=== PATIENT | female | born 2000 | race Caucasian/White ===

== ENCOUNTER 2024-01-09 14:05 | Inpatient (IN) | payer OTHER, SELFPAY ==
[2024-01-09] VITALS (37 sets, daily range): BP systolic 110–182; BP diastolic 56–108; PULSE 60–90; RESP 16–20; TEMP 36.2–37.3; O2SAT 89–100; BMI 29.0
[2024-01-09] MEDS: Lactated Ringers 1,000 ML 50 ML IV (14:50)
[2024-01-09 15:10] LABS: Absolute Lymphocyte Count 1.48 X10^3/uL (0.83-4.51); Absolute Neutrophil Count 7.7 X10^3/uL (2.0-7.7); Basophil# 0.03 X10^3/uL; Basophil% 0.3 % (0-1); Eosinophil# 0.11 X10^3/uL; Eosinophils% 1.1 % (0-5); Hematocrit 35.7 % (37-47); Hemoglobin 11.7 g/dL (12.0-15.0); Lymphocyte # 1.48 X10^3/ul (0.83-4.51); Lymphocyte % 14.5 % (19-41); Mean Corp Hgb Conc 32.8 g/dL (32-36); Mean Corpuscular Hgb 29.5 pg (27.0-32.0); Mean Corpuscular Volume 90.2 fL (81-99); Mean Platelet Vol. 11.7 fl (6.2-12.0); Monocyte# 0.83 X10^3/uL; Monocyte% 8.1 % (0-10); NRBC Flagged by Analyzer 0 % (0-5); Neutrophil % 75.4 % (47-70); Platelet Count 118 K/mm3 (150-450); RBC Distribution Width SD 46.1 fl (35.1-43.9); Red Blood Count 3.96 M/mm3 (4.2-5.4); White Blood Count 10.2 K/mm3 (4.4-11.0)
[2024-01-09 15:46] LABS: Syphilis Antibodies Non-reactive
[2024-01-09 17:32] LABS: AST(SGOT) 23 U/L (15-37); Alanine Aminotransfer ALT/SGPT 14 U/L (13-56); Creatinine, Serum 0.69 mg/dL (0.55-1.02); EST Glomerular Filtration Rate 111 mL/min (>60); Est Glom Filt Rate - Afr Amer 134 mL/min (>60); Estimated Creatinine Clearance 130.67 ml/min; Uric Acid 4.6 mg/dL (2.6-6.0)
[2024-01-09 17:33] LABS: Protein, Urine (Random) 25.9 mg/dL (<11.9); Protein:Creat Ratio 281 mg/g CRE (0-200)
--- NOTE | 2024-01-09 17:43 | PCM.HP.OB ---
HPI - General General Date of Admission: 01/09/24 HPI Narrative VICTORIA NORWOOD, is a 23 F at who presents from office for leaking of fluid. Fern and Nitrazine positive. Maternal Data Information FRANCISCO Calculator Estimated Delivery Date Method Current WG Current Estimate 01/11/24 Manual 39w 5d PFSH PFSH Medical History (Updated 01/09/24 @ 19:45 by Dunia Rivas CNM) Anxiety Asthma Home Medications albuterol sulfate 90 mcg/actuation aerosol inhaler 2 puff inhalation Q4H PRN PRN dyspnea 01/09/24 [History Last Taken Unknown] docosahexaenoic acid See Rx Instructions PO DAILY 01/09/24 [History Last Taken 01/08/24] Allergy/AdvReac Type Severity Reaction Status Date / Time Latex, Natural Rubber Allergy Mild Hives Verified 01/09/24 14:26 gluten Allergy Nausea/Vom/ Verified 01/09/24 14:26 Diarrhea Surgical History (Updated 01/09/24 @ 15:22 by Radha Gracia) History of surgery Social History Smoking Status: Never smoker History Elective abortions Hx Para 0 Spontaneous abortions Hx # Term Pregnancies Ectopic pregnancies Hx # Pregnancies Multiple births # of living children ROS Eyes Eyes: Denies blurry vision, change in vision or spots in vision ENT HEENT: Denies dizziness or headache(s) Cardiovascular Cardiovascular: Denies abdominal pain, chest pain or dyspnea Respiratory/Chest Respiratory/Chest: Denies cough, dyspnea, shortness of breath at rest or shortness of breath with exertion Gastrointestinal Gastrointestinal: Denies abdominal pain, diarrhea or vomiting Genitourinary Genitourinary: Denies change in urinary stream, difficulty urinating or dysuria Musculoskeletal Musculoskeletal: Reports none Integumentary Integumentary: Denies rash Neurologic Neurologic: Denies dizziness, headache(s), memory loss or weakness Psychiatric Psychiatric: Reports none Vital Signs Vital Signs Vital Signs: 01/09/24 14:30 01/09/24 14:30 01/09/24 14:32 Temperature Temperature Source Pulse Rate 81 Respiratory Rate Blood Pressure 182/96 H 179/77 H BP Systolic 182 179 BP Diastolic 96 77 01/09/24 14:32 01/09/24 14:54 01/09/24 14:54 Temperature Temperature Source Pulse Rate 77 78 Respiratory Rate Blood Pressure 140/84 H BP Systolic 140 BP Diastolic 84 01/09/24 15:34 01/09/24 15:34 01/09/24 15:34 Temperature 98.6 F Temperature Source Temporal Pulse Rate Respiratory Rate 16 Blood Pressure BP Systolic BP Diastolic 01/09/24 16:11 01/09/24 16:11 01/09/24 16:10 Temperature Temperature Source Temporal Pulse Rate 77 Respiratory Rate Blood Pressure 152/90 H BP Systolic 152 BP Diastolic 90 01/09/24 16:10 01/09/24 16:10 01/09/24 16:29 Temperature 97.8 F Temperature Source Pulse Rate Respiratory Rate 16 Blood Pressure 148/75 H BP Systolic 148 BP Diastolic 75 01/09/24 16:29 01/09/24 17:36 01/09/24 17:36 Temperature Temperature Source Pulse Rate 73 83 Respiratory Rate Blood Pressure 134/79 H BP Systolic 134 BP Diastolic 79 01/09/24 17:35 01/09/24 17:35 01/09/24 17:35 Temperature 99.1 F Temperature Source Temporal Pulse Rate Respiratory Rate 16 Blood Pressure BP Systolic BP Diastolic Weight Weight: 174 lb 6.17 oz Body Mass Index (BMI) 29.0 Physical Exam Const alert, oriented x3 and no apparent distress General Appearance: cooperative Orientation / Consciousness: awake Exam Limitations: no limitations HEENT normocephalic Head and Scalp: normal to inspection Eyes General Eye: normal appearance of both eyes Neck full ROM and no lymphadenopathy Lymph Lymphatic: no lymphadenopathy noted Chest inspection of chest normal Resp normal respiratory effort, normal air movement and clear to auscultation bilaterally Effort and Inspection: able to speak in complete sentences and symmetric chest movement Cardio regular rate and regular rhythm GI normal to inspection, nondistended, normoactive bowel sounds Manual OB Exam: presentation cephalic, dilated 4, effaced 80 and station 0 Amniotic Fluid: clear amniotic fluid Back/Spine normal ROM Extremity full ROM and no calf tenderness Skin no rashes or lesions noted General Skin Exam: no breakdown Neuro oriented x3 and CN's II-XII intact bilaterally Psych mental status grossly normal and thought process normal Labs Labs Labs: Blood Type O NEGATIVE Antibody Screen NEGATIVE Hct 35.7 % (37-47) L Hgb 11.7 g/dL (12.0-15.0) L Syphilis Total Ab Non-reactive GBS negative Assessment & Plan (1) Spontaneous rupture of amniotic membranes: (2) Anxiety: (3) Asthma: COMMENT: inhaler (4) Rh negative status during : PLAN: Plan Admit to labor and delivery Routine labs CE /-2 IUPC placed without difficulty. Large amount of clear fluid noted Start Pitocin at 2 mu/min and increase per orders Epidural when indicated Dr. Otero notified of admission and is collaborating physician
[2024-01-09] MEDS: LACTATED RINGERS 500 ML 999 ML IV (19:44)
[2024-01-09] MEDS: Oxytocin 15 Units/NS 250ml 15 UNITS/250 ML IV.SOLN 2 UNITS IV (19:50)
[2024-01-10] VITALS (23 sets, daily range): BP systolic 118–150; BP diastolic 63–91; PULSE 71–136; RESP 16–20; TEMP 36.2–37.8; O2SAT 16–100
[2024-01-10] MEDS: Lactated Ringers 1,000 ML 200 ML IV (00:12)
[2024-01-10] MEDS: Mag Hydrox/Al Hydrox/Simeth 30 ML UDC PO (00:12)
[2024-01-10] MEDS: Ondansetron 4 MG/2 ML Vial IV (00:38)
[2024-01-10] MEDS: 0.9% Saline Lock 10 ML Syringe IV ×3 (00:39→19:52)
[2024-01-10] MEDS: fentaNYL-bupivacaine (epidural) 100 ML BAG EPIDURAL (01:35)
--- NOTE | 2024-01-10 05:35 | PCM.PN.CNM ---
Subjective Subjective Patient seen at bedside. Complete dilation and pushing for over 3 hours with minimal progress. Called to room for assessment. Patient is tearful and stating she cannot push and further. C/O right hip and RUQ pain. Anesthesia called for assessment. Objective Data Objective Data Vital Signs: Vital Signs Temp Pulse Resp BP Pulse Ox O2 Del Method 97.5 F L 113 H 20 H 140/80 H 99 Room Air 01/10/24 05:31 01/10/24 05:32 01/10/24 05:31 01/10/24 05:32 01/10/24 05:31 01/10/24 05:31 Oxygen Delivery Method Room Air Weight: 174 lb 6.17 oz Body Mass Index (BMI) 29.0 Intake & Output: Intake and Output for Last 24 Hours 01/08/24 01/09/24 01/10/24 23:59 23:59 23:59 Intake Total 1500.00 / 1500.00 18.8 / 18.8 Output Total 1550 / 1550 Balance 1500.00 / 1500.00 -1531.2 / -1531.2 Lab / Micro Data 01/09/24 14:50 01/09/24 17:00 Labs: Laboratory Results - last 24 hr 01/09/24 14:50: WBC 10.2, RBC 3.96 L, Hgb 11.7 L, Hct 35.7 L, MCV 90.2, MCH 29.5, MCHC 32.8, RDW Std Deviation 46.1 H, RDW Coeff of Joe 14.0, Plt Count 118 L, MPV 11.7, Immature Gran % (Auto) 0.600, Neut % (Auto) 75.4 H, Lymph % (Auto) 14.5 L, Calloway % (Auto) 8.1, Eos % (Auto) 1.1, Baso % (Auto) 0.3, Absolute Neuts (auto) 7.7, Absolute Lymphs (auto) 1.48, Nucleated RBC % 0, Syphilis Total Ab Non-reactive, Blood Type O NEGATIVE, Antibody Screen NEGATIVE 01/09/24 17:00: Creatinine 0.69, Estim Creat Clear Calc 130.67, Est GFR (MDRD) Af Amer 134, Est GFR (MDRD) Non-Af 111, Uric Acid 4.6, AST 23, ALT 14, U Random Total Protein 25.9 H, Urine Creatinine 92.30, Protein/Creatinin Ratio 281 H Assessment & Plan (1) Failure of descent in labor, delivered, current hospitalization: (2) Asthma: COMMENT: inhaler (3) Anxiety: (4) Rh negative status during : PLAN: Plan CE station- caput noted Attempted to push at bedside with patient to assess - patient pushing with no movement of head Pitocin currently off for tachysystole Discussed options at this time and patient would like a primary section Dr. Otero aware of plan and is in route to hospital
[2024-01-10] MEDS: Sodium Citrate/Citric Acid 30 ML UDC PO (05:37)
[2024-01-10] MEDS: Acetaminophen 500 MG Tablet PO (05:40)
[2024-01-10] MEDS: Cefazolin 2 GM in 0.9% Normal Saline (100mL Bag) 100 ML IV (06:00)
[2024-01-10] MEDS: Azithromycin 500 MG in Dextrose 5%-Water (250mL Bag) 250 ML 250 MG IV (06:01)
--- NOTE | 2024-01-10 06:35 | OP.PCM_ITS ---
Maternal Data Information FRANCISCO Calculator Estimated Delivery Date Method Current WG Current Estimate 01/11/24 Manual 39w 6d Details Operative Information Date of Procedure: 01/10/24 Pre-Operative Diagnosis: Arrest of descent Post-Operative Diagnosis: same, live male Indications for : Arrrest of Descent Indications Narrative: I was called by CNLavinia Rivas notified that patient had been pushing for 3 hours without any descent of the head caput not past the 0 station. Decision for primary for arrest of descent. 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 She was prepped and draped in the normal sterile fashion. Epidural Anesthesia was found to be adequate. At this time a Pfannenstiel skin incision was made with a knife was carried down to the underlying layer of the fascia. The fascial incision was then extended laterally using opposing traction. Attention was then turned to the superior aspect of the fascial edge was grasped with 2 straight [place] clamps tented up and the rectus muscle dissected off sharply using curved Alicea scissor. Rectus muscles were then in the midline bluntly and peritoneum was entered bluntly. Gentle opposing traction was placed. At this time the vesicouterine peritoneum was identified. Scalpel was used to make a uterine incision in a low transverse fashion. The uterus was then entered bluntly gentle opposing traction was placed to extend this incision. pt will large amount of amniotic fluid still present, clear. with minimal push up from below to help disengage head- Infant's head was brought to the uterine incision was delivered atraumatically. Cord was clamped and cut was handed to the waiting nursery team. The Placenta was removed from the uterus. The uterus was then removed from the abdominal cavity. The uterus was cleared of all clots and debris using a lap. At this time the uterine incision was reapproximated using #1 Vicryl in a running locked fashion. There was an extension down the left side, multiple sutures used for hemostasis- once hemostasis acheive hemoblast used and pressure held x 2 min- excellent hemostasis noted. Posterior cul-de-sac was then cleared of all clots and debris. Uterus was placed back in the abdominal cavity. Gutters were cleared of all clots and debris. Uterine incision was reevaluated and noted to be of excellent hemostasis. hemoblast placed on uterine incision. At this time the peritoneum was grasped with Kellys reapproximated using #2 Vicryl suture in a running fashion. Fascia was then reapproximated using #1 Vicryl in a running fashion. Subcu layer was irrigated , bovied for any oozing and remaining hemoblast placed, it was then reapproximated with #2 0 plain gut suture in an interrupted fashion. Subcu layer was closed using 4-0 Monocryl in a subcu fashion. Dry sterile dressing was applied. Instrument lap needle count correct ?2. Anticipated normal postoperative course. Presentation: Positive for Vertex Amniotic Membrane Rupture Type: Spontaneous Amniotic Fluid Description: Clear Placental Delivery Description: Manual Removal Placenta Disposition: [facility] Cord Vessel Description: 3 Vessels Cord Entanglement: None Cord Gases: ABG and VBG Infant A Gender: Male (1 minute): 8 (5 minute): 9 Delayed Cord Clamping: No Complications Risks of Surgery Discussed w/Patient: Bleeding, Anesthesia Risks, Infection, Need for Future C-Sections and Injury to surrounding structure(s) including bowel and bladder Complications: none
[2024-01-10] MEDS: Lactated Ringers 1,000 ML 100 ML IV (07:15)
[2024-01-10] MEDS: Oxytocin 15 Units/NS 250ml 15 UNITS/250 ML IV.SOLN 83 UNITS IV (07:19)
[2024-01-10] MEDS: Ketorolac 30 MG/ML Syringe IV ×3 (07:57→19:52)
[2024-01-10] MEDS: Acetaminophen 500 MG Tablet 1000 MG PO ×3 (11:17→23:48)
[2024-01-11] MEDS: Ketorolac 30 MG/ML Syringe IV (02:23)
[2024-01-11] MEDS: 0.9% Saline Lock 10 ML Syringe IV (02:23)
[2024-01-11 04:00] VITALS: BP 135/70; PULSE 75; RESP 16; TEMP 36.4; O2SAT 96
[2024-01-11] MEDS: Acetaminophen 500 MG Tablet 1000 MG PO ×3 (05:57→18:31)
[2024-01-11 06:47] LABS: Hematocrit 25.8 % (37-47); Hemoglobin 8.4 g/dL (12.0-15.0); Mean Corp Hgb Conc 32.6 g/dL (32-36); Mean Corpuscular Hgb 29.8 pg (27.0-32.0); Mean Corpuscular Volume 91.5 fL (81-99); Mean Platelet Vol. 11.3 fl (6.2-12.0); Platelet Count 104 K/mm3 (150-450); RBC Distribution Width CV 14.5 % (11.6-14.6); RBC Distribution Width SD 48.2 fl (35.1-43.9); Red Blood Count 2.82 M/mm3 (4.2-5.4); White Blood Count 12.8 K/mm3 (4.4-11.0)
[2024-01-11 08:28] VITALS: BP 125/68; RESP 16; TEMP 36.6; O2SAT 98
[2024-01-11] MEDS: Ibuprofen 600 MG Tablet PO ×3 (08:33→21:02)
--- NOTE | 2024-01-11 10:28 | PCM.PN.OB ---
Subjective Subjective Doing well per patient and nursing staff. Ambulating and taking PO without difficulty. Voiding and passing flatus. Pain controlled. , services for assistance. Denies headache, visual changes, chest pain, shortness of breath, leg pain or increased bleeding. Lochia normal. Objective Data Objective Data Vital Signs: Vital Signs Temp Pulse Resp BP Pulse Ox O2 Del Method 97.9 F 75 16 125/68 H 98 Room Air 01/11/24 08:28 01/11/24 04:00 01/11/24 08:28 01/11/24 08:28 01/11/24 08:28 01/11/24 08:28 Oxygen Delivery Method Room Air Weight: 174 lb 6.17 oz Body Mass Index (BMI) 29.0 Intake & Output: Intake and Output for Last 24 Hours 01/09/24 01/10/24 01/11/24 23:59 23:59 23:59 Intake Total 1500.00 / 1500.00 2404.8 / 2404.8 Output Total 2800 / 2800 900 / 900 Balance 1500.00 / 1500.00 -395.2 / -395.2 -900 / -900 Lab / Micro Data 01/11/24 06:02 01/09/24 17:00 Labs: Laboratory Results - last 24 hr 01/11/24 06:02: WBC 12.8 H, RBC 2.82 L, Hgb 8.4 L, Hct 25.8 L, MCV 91.5, MCH 29.8, MCHC 32.6, RDW Std Deviation 48.2 H, RDW Coeff of Jeo 14.5, Plt Count 104 L, MPV 11.3 ROS Constitutional Constitutional: Reports systems reviewed and no addt'l complaints, except as documented; Denies headache(s) Eyes Eyes: Denies acute decrease in peripheral vision, blurry vision or change in vision ENT HEENT: Reports systems reviewed and no addt'l complaints, except as documented Cardiovascular Cardiovascular: Denies chest pain or dizziness Respiratory/Chest Respiratory/Chest: Denies cough, dyspnea, dyspnea on exertion, shortness of breath at rest or shortness of breath with exertion Gastrointestinal Gastrointestinal: Denies abdominal pain, diarrhea, nausea or vomiting Genitourinary Genitourinary: Denies abdominal discomfort Musculoskeletal Musculoskeletal: Denies limited range of motion Integumentary Integumentary: Reports systems reviewed and no addt'l complaints, except as documented Neurologic Neurologic: Reports systems reviewed and no addt'l complaints, except as documented Psychiatric Psychiatric: Reports systems reviewed and no addt'l complaints, except as documented Endocrine Endocrinology: Reports systems reviewed and no addt'l complaints, except as documented Hematologic/Lymphatic Hematologic/Lymphatic: Reports systems reviewed and no addt'l complaints, except as documented Allergic/Immunologic Allergic/Immunologic: Reports systems reviewed and no addt'l complaints, except as documented Physical Exam Const alert and oriented x3 General Appearance: cooperative Orientation / Consciousness: awake, oriented to person, oriented to place and oriented to time Exam Limitations: no limitations HEENT normocephalic Head and Scalp: normal to inspection, normocephalic and atraumatic Face and Sinus: normal facial exam Eyes General Eye: normal appearance of both eyes Neck full ROM Chest Chest: symmetrical chest wall rise Resp normal respiratory effort and normal air movement Auscultation: clear to auscultation bilaterally Cardio regular rate, regular rhythm, S1 normal heart sound, S2 normal heart sound, no murmurs, no rub, no gallops and no clicks GI normal to inspection, nondistended, normoactive bowel sounds and non-tender GI Narrative: Dressing dry and intact. Fundus 1 below u appearance of the vagina normal Bladder / Kidney Exam: no CVA tenderness Back/Spine normal ROM Extremity normal to inspection and full ROM Skin no rashes or lesions noted Neuro oriented x3, CN's II-XII intact bilaterally and moves all extremities Sensorium / Orientation: awake, alert and oriented to person Motor Exam: clonus absent Deep Tendon Reflexes: Rt Patellar (L4): 2+ and Lt Patellar (L4): 2+ Assessment & Plan (1) Failure of descent in labor, delivered, current hospitalization: (2) Rh negative status during : (3) Delivery by section: PLAN: Plan 1) Routine PP care 2) for assistance 3) Pain management 4) Vitals stable 5) Ambulation 6) Planning D/C home tomorrow
[2024-01-11] MEDS: Senna/Docusate Sodium 1 Tablet PO (12:13)
[2024-01-11 14:00] VITALS: RESP 16; TEMP 36.9
[2024-01-11 20:55] VITALS: BP 120/67; PULSE 83; RESP 16; TEMP 36.8; O2SAT 99
[2024-01-12] MEDS: Acetaminophen 500 MG Tablet 1000 MG PO ×2 (00:40→06:20)
[2024-01-12 01:50] VITALS: BP 122/72; PULSE 98; RESP 16; TEMP 36.8; O2SAT 98
[2024-01-12] MEDS: Ibuprofen 600 MG Tablet PO ×2 (02:59→09:00)
--- NOTE | 2024-01-12 06:50 | PCM.DC.SUM ---
Providers Date of Admission: 01/09/24 Reason For Visit: PRIMARY Diagnosis Discharge Diagnosis (1) Failure of descent in labor, delivered, current hospitalization: Status: Acute Code(s): O62.2 - Other uterine inertia (2) Rh negative status during : Status: Acute Code(s): O26.899 - Other specified related conditions, unspecified trimester; Z67.91 - Unspecified blood type, Rh negative (3) Delivery by section: Status: Acute (4) Care and examination of lactating mother: Status: Acute Code(s): Z39.1 - Encounter for care and examination of lactating mother Plan POD 2 Primary C/S Medications at Discharge Home Medications albuterol sulfate 90 mcg/actuation aerosol inhaler 2 puff inhalation Q4H PRN PRN dyspnea 01/09/24 docosahexaenoic acid See Rx Instructions PO DAILY 01/09/24 acetaminophen 500 mg tablet 1,000 mg (2 x 500 mg) PO Q6H #0 tabs 01/12/24 ibuprofen 600 mg tablet 600 mg PO Q6H #0 tabs 01/12/24 sennosides 8.6 mg-docusate sodium 50 mg tablet (Stool Softener-Stimulant Laxative) 1 - 2 tab PO DAILY #0 tabs 01/12/24 Hospital Course Operations section Procedures None Summary of Care Provided Minutes Spent on Discharge: 15 Hospital Course: Patient had primary section. Hospital course was uneventful. Physical Exam Narrative Patient seen at bedside. with support. Using a shield. Ambulating and voiding without difficulty. Passing flatus. Pain controlled with Tylenol and Ibuprofen PO. Lochia is minimal. Desires discharge home later today. Const alert and no apparent distress General Appearance: cooperative and comfortable Exam Limitations: no limitations HEENT normocephalic Eyes General Eye: normal appearance of both eyes Neck full ROM General: normal visual inspection Chest Chest: symmetrical chest wall rise Resp normal respiratory effort and normal air movement Effort and Inspection: symmetric chest movement Auscultation: clear to auscultation bilaterally Cardio regular rate and regular rhythm GI normal to inspection, nondistended, normoactive bowel sounds Back/Spine normal ROM Extremity full ROM and no calf tenderness General Extremity: normal exam except as noted Skin no rashes or lesions noted Neuro CN's II-XII intact bilaterally Psych mental status grossly normal Weight / BMI Weight Weight: 174 lb 6.17 oz Body Mass Index (BMI) 29.0 ABG / Lab / Microbiology Data 01/11/24 06:02 01/09/24 17:00 D/C Instructions Discharge Diet: No restrictions Discharge Activity: May Drive (2 weeks) and May Shower May resume sexual activity in: 6-8 weeks Weight Bearing Status: Weight bearing as tolerated Call your doctor if your incision/area has: Continuous Slow Oozing, Sudden Increased Bleeding, Increased Pain/ Swelling, Increased Redness, Foul Smelling Discharge and Swelling at the incision site Call your doctor if you observe: Fever of 101 or Higher, Numbness or Tingling, Using more than 1 pad per hour, Shortness of breath, Dizziness, Swelling in the ankles, Chest pain, Calf discomfort and Uncontrolled pain Suture Line Care: Avoid Pulling/Pushing Remove Dressing in: 5 days Cleanse incision/area with: Soap & Water When: 1 week for incision check Meaningful Use Info Meaningful Use Meaningful Use Diagnoses (Choose all that apply): None applicable Ischemic Stroke Statin Dosing Therapy Reference: STATIN DOSE THERAPY REFERENCE: * Patients > 75 years receive moderate or high dose statin therapy. * Patients 75 years or YOUNGER should receive HIGH intensity statin dose unless contraindicated. You will be required to document reason for non-treatment if statin daily dose does not meet guidelines. HIGH DOSE STATIN THERAPY DAILY Atorvastatin > than or = to 40 mg Rosuvastatin > than or = to 20 mg Amlodipine + Atorvastatin > than or = to 2.5/40 mg Ezetimibe + Simvastatin 10/80 mg Simvastatin 80mg Discharge Plan Admission Admit Date/Time: 01/09/24 14:05 Primary Reason for Your Visit: Labor and Delivery Attending Provider: Nelly Otero Discharge Orders/Prescriptions Prescriptions: New sennosides-docusate sodium [Stool Softener-Stimulant Laxat] 8.6-50 mg Tablet 1 - 2 tab PO DAILY Qty: 0 0RF acetaminophen 500 mg Tablet 1,000 mg PO Q6H Qty: 0 0RF ibuprofen 600 mg Tablet 600 mg PO Q6H Qty: 0 0RF Continued albuterol sulfate 90 mcg/actuation HFA aerosol inhaler 2 puff INHALATION Q4H PRN PRN (Reason: dyspnea) docosahexaenoic acid [ DHA] See Rx Instructions PO DAILY Rx Instructions: orally daily; Referrals / Follow Up: Dunia Rivas CNM [Med Staff - Adv Practice Prof] - Disposition Disposition (needs filled in before D/C Order can be placed): Home, Self Care
[2024-01-12 07:50] VITALS: BP 125/72; PULSE 74; RESP 16; TEMP 36.6; O2SAT 98
[2024-01-12] MEDS: Senna/Docusate Sodium 1 Tablet PO (08:59)
== END 2024-01-12 11:10 | disposition home or self-care (01) | DRG 788 ==
PROVIDERS: Obstetrics & Gynecology; Admitting Provider Obstetrics & Gynecology; Referring Provider Obstetrics & Gynecology; Visit Provider Obstetrics & Gynecology
DX: O99.52 Diseases of the respiratory system complicating childbirth (principal); J45.909 Unspecified asthma, uncomplicated; Z37.0 Single live birth; O62.1 Secondary uterine inertia; Z3A.39 39 weeks gestation of pregnancy; O26.899 Other specified pregnancy related conditions, unspecified trimester; Z67.91 Unspecified blood type, Rh negative
CPT/HCPCS: 59025; 59050; 82565; 82570; 84156; 84450; 84460; 84550; 85025; 85027; 86780; 86850; 86900; 86901; 99221; J7120; A4216; G0378; J2405

== ENCOUNTER 2024-01-17 17:53 | Emergency (ER) | payer OTHER, SELFPAY ==
[2024-01-17 17:54] VITALS: BP 158/92; PULSE 90; RESP 18; TEMP 35.9
[2024-01-17 17:55] VITALS: BP 158/92; PULSE 90; RESP 18; TEMP 35.9
--- NOTE | 2024-01-17 18:19 | ED.VIS.GI ---
HPI <BREONNA Anderson - Last Filed: 01/17/24 21:52> HPI - GI History of Present Illness Chief Complaint: Abd Pain Narrative Narrative: Patient presenting today due to lower abdominal pain that she has had since having her 1 week ago. She reports that the pain is across her lower abdomen and radiates up her right side to the right upper quadrant. She reports that the surgery was performed by Dr. Otero. Her pain has been gradually worsening since, especially over the last few days. On she called the office and they had her obtain outpatient labs, they noticed her alkaline phosphatase was elevated and told her it could be her gallbladder, prompting her to come in for evaluation. She reports that she has been eating and drinking normally and has had normal output. She denies any fevers, chills, nausea, vomiting, diarrhea, or urinary symptoms. She denies any other abdominal surgery. [facility] <BREONNA Anderson - Last Filed: 01/17/24 21:52> [facility] Medical History Anxiety Asthma Home Medications albuterol sulfate 90 mcg/actuation aerosol inhaler 2 puff inhalation Q4H PRN PRN dyspnea 01/09/24 [History Last Taken Unknown] docosahexaenoic acid See Rx Instructions PO DAILY 01/09/24 [History Last Taken 01/08/24] acetaminophen 500 mg tablet 1,000 mg (2 x 500 mg) PO Q6H #0 tabs 01/12/24 [Rx Last Taken Unknown] ibuprofen 600 mg tablet 600 mg PO Q6H #0 tabs 01/12/24 [Rx Last Taken Unknown] sennosides 8.6 mg-docusate sodium 50 mg tablet (Stool Softener-Stimulant Laxative) 1 - 2 tab PO DAILY #0 tabs 01/12/24 [Rx Last Taken Unknown] ferrous sulfate 325 mg (65 mg iron) tablet 325 mg PO QODAY 01/17/24 [History Last Taken Unknown] Allergy/AdvReac Type Severity Reaction Status Date / Time Latex, Natural Rubber Allergy Mild Hives Verified 01/17/24 17:55 gluten Allergy Nausea/Vom/ Verified 01/17/24 17:55 Diarrhea Surgical History History of surgery Social History Smoking Status: Never smoker ROS <BREONNA Anderson - Last Filed: 01/17/24 21:52> ROS ED Constitutional Constitutional ED: Denies chills or fever(s) Cardiovascular Cardiovascular: Denies chest pain Respiratory/Chest Respiratory/Chest: Denies dyspnea Gastrointestinal Gastrointestinal: Reports abdominal pain; Denies nausea or vomiting Genitourinary Genitourinary ED: Denies dysuria, hematuria or urinary urgency Musculoskeletal Musculoskeletal: Denies arthralgias or myalgias Integumentary Denies rash EXAM <BREONNA Anderson - Last Filed: 01/17/24 21:52> Physical Exam Const Vital Signs: 01/17/24 17:55 01/17/24 17:54 01/17/24 19:54 Temperature 96.6 F L 96.6 F L Temperature Source Temporal Temporal Pulse Rate 90 90 91 Respiratory Rate 18 18 16 Blood Pressure 158/92 H 158/92 H 134/72 H Blood Pressure Mean 114 114 92 Pulse Ox 96 Oxygen Delivery Method Room Air Positive well nourished, well developed and no apparent distress General Appearance ED: well developed HEENT Reports normocephalic and head/scalp atraumatic Mouth ED: Yes moist mucous membranes normal Eyes PERRL and EOMs intact bilaterally Neck full ROM and supple Chest Wall inspection of chest normal Resp normal respiratory effort and clear to auscultation bilaterally Cardio regular rate and regular rhythm GI soft to palpation, non-distended and no masses GI Narrative: Tenderness across the lower abdomen and right upper quadrant, negative Hurtado sign. Healing suprapubic surgical incision, no dehiscence, surrounding erythema, edema, or purulent discharge. Back/Spine normal ROM and normal to inspection Extremity normal to inspection and full ROM Neuro oriented x3, CN's II-XII intact bilaterally, moves all extremities, no focal motor deficits and no sensory deficits noted Sensorium / Orientation: awake and alert Psych mental status grossly normal and thought process normal Skin no rashes or lesions noted and no wounds <Dr. Eleazar Corcoran MD - Last Filed: 01/17/24 19:22> Physical Exam Const Vital Signs: 01/17/24 17:55 01/17/24 17:54 01/17/24 19:54 Temperature 96.6 F L 96.6 F L Temperature Source Temporal Temporal Pulse Rate 90 90 91 Respiratory Rate 18 18 16 Blood Pressure 158/92 H 158/92 H 134/72 H Blood Pressure Mean 114 114 92 Pulse Ox 96 Oxygen Delivery Method Room Air [facility] <BREONNA Anderson - Last Filed: 01/17/24 21:52> [facility] Narrative Medical decision making narrative: Patient presenting today due to lower abdominal pain that she has had ever since having her 1 week ago, the pain has been gradually worsening. She reports that she is having a slight amount of vaginal bleeding and is having to change her pad every 3 hours or so. She followed up with her OB on who obtained outpatient labs, they were all unremarkable aside from alkaline phosphatase of 263. Her surgical incision does not appear to be infected. Moderate tenderness to the lower abdomen. CT scan of the abdomen and pelvis obtained, shows an enlarged uterus but no other acute findings or signs of abscess or seroma. She has a slight WBC at 11.2 and alkaline phosphatase of 177 but otherwise labs are unremarkable. She was given Toradol for pain and is resting comfortably. We did speak with OB on-call, Dr. Cyr would like to see patient in the office but is comfortable with the workup we performed. Return instructions were given and patient discharged home in stable condition. I have personally performed a face to face assessment of the patient and have reviewed the NICOLE Note. I performed a substantive portion of the visit including all aspects of the following. My whitfield findings include: History is 23-year-old female status post for about a week ago. Is complaining of lower and right-sided abdominal pain for the last several days. Progressively worsening. No fever. No vomiting. No dysuria. No other prior abdominal surgeries. Had an uncomplicated except for the . Exam is [20-year-old female vital signs stable afebrile. Her pressure is elevated 158/92 she said it was not elevated throughout the . H EENT exam unremarkable. Neck nontender. Lungs clear to auscultation. Heart regular rhythm no murmur. Abdomen is nondistended normal bowel sounds. No peritoneal signs. She does have diffuse tenderness on the right side of her abdomen upper lower quadrant and along her which is dry and clean. There is no signs of infection. No discharge or redness. Moving all 4 extremities. Nontender without edema. Neurologically she is awake and alert.] Medical Decision Making [23-year-old female with abdominal pain status post and also with elevated blood pressure it may be from her pain. Screening labs and CAT scan are going to be obtained. She will be treated with Toradol for pain.] Other additions or changes: [None] Lab Data Labs: Laboratory Results - last 24 hr 01/17/24 01/17/24 18:30 18:34 WBC 11.2 H RBC 3.54 L Hgb 10.2 L Hct 31.8 L MCV 89.8 MCH 28.8 MCHC 32.1 RDW Std Deviation 45.2 H RDW Coeff of Joe 13.8 Plt Count 380 MPV 8.9 Immature Gran % (Auto) 1.800 H Neut % (Auto) 76.5 H Lymph % (Auto) 13.1 L [place] % (Auto) 5.5 Eos % (Auto) 2.7 Baso % (Auto) 0.4 Absolute Neuts (auto) 8.6 H Absolute Lymphs (auto) 1.47 Nucleated RBC % 0 Sodium 136 Potassium 3.8 Chloride 104 Carbon Dioxide 24.0 Anion Gap 8 BUN 19 H Creatinine 0.66 Estim Creat Clear Calc 129.47 Est GFR (MDRD) Af Amer 141 Est GFR (MDRD) Non-Af 117 BUN/Creatinine Ratio 28.9 H Glucose 91 Calcium 9.8 Total Bilirubin 0.20 Direct Bilirubin 0.08 AST 29 ALT 34 Alkaline Phosphatase 177 H Total Protein 7.3 Albumin 2.8 L Globulin 4.5 H Urine Color Yellow Urine Clarity Clear Urine pH 6.0 Ur Specific [place] 1.010 Urine Protein Negative Urine Glucose (UA) Normal Urine Ketones Negative Urine Occult Blood 25 H Urine Nitrite Negative Urine Bilirubin Negative Urine Urobilinogen Normal Ur Leukocyte Esterase Negative Urine RBC 0 SEEN Urine WBC 0 SEEN Ur Squamous Epith Cells 0 SEEN Urine Bacteria 0 SEEN Urine Mucus 0 SEEN Radiography Diagnostic Testing: Clinical Impression(s) from Imaging Studies Abdomen/Pelvis CT 01/17/24 19:11 IMPRESSION: Status post recent section with an enlarged uterus but no postoperative seroma, hematoma, or abscess. Electronically Signed: Slick Newberry MD at 20:20 EDT , <Dr. Eleazar Corcoran MD - Last Filed: 01/17/24 19:22> MDM MDM Narrative Medical decision making narrative: I have personally performed a face to face assessment of the patient and have reviewed the NICOLE Note. I performed a substantive portion of the visit including all aspects of the following. My whitfield findings include: History is 23-year-old female status post for about a week ago. Is complaining of lower and right-sided abdominal pain for the last several days. Progressively worsening. No fever. No vomiting. No dysuria. No other prior abdominal surgeries. Had an uncomplicated except for the . Exam is [20-year-old female vital signs stable afebrile. Her pressure is elevated 158/92 she said it was not elevated throughout the . H EENT exam unremarkable. Neck nontender. Lungs clear to auscultation. Heart regular rhythm no murmur. Abdomen is nondistended normal bowel sounds. No peritoneal signs. She does have diffuse tenderness on the right side of her abdomen upper lower quadrant and along her which is dry and clean. There is no signs of infection. No discharge or redness. Moving all 4 extremities. Nontender without edema. Neurologically she is awake and alert.] Medical Decision Making [23-year-old female with abdominal pain status post and also with elevated blood pressure it may be from her pain. Screening labs and CAT scan are going to be obtained. She will be treated with Toradol for pain.] Other additions or changes: [None] Lab Data Attestation: I reviewed the patient's lab results. Labs: Laboratory Results - last 24 hr 01/17/24 01/17/24 18:30 18:34 WBC 11.2 H RBC 3.54 L Hgb 10.2 L Hct 31.8 L MCV 89.8 MCH 28.8 MCHC 32.1 RDW Std Deviation 45.2 H RDW Coeff of Joe 13.8 Plt Count 380 MPV 8.9 Immature Gran % (Auto) 1.800 H Neut % (Auto) 76.5 H Lymph % (Auto) 13.1 L [place] % (Auto) 5.5 Eos % (Auto) 2.7 Baso % (Auto) 0.4 Absolute Neuts (auto) 8.6 H Absolute Lymphs (auto) 1.47 Nucleated RBC % 0 Sodium 136 Potassium 3.8 Chloride 104 Carbon Dioxide 24.0 Anion Gap 8 BUN 19 H Creatinine 0.66 Estim Creat Clear Calc 129.47 Est GFR (MDRD) Af Amer 141 Est GFR (MDRD) Non-Af 117 BUN/Creatinine Ratio 28.9 H Glucose 91 Calcium 9.8 Total Bilirubin 0.20 Direct Bilirubin 0.08 AST 29 ALT 34 Alkaline Phosphatase 177 H Total Protein 7.3 Albumin 2.8 L Globulin 4.5 H Urine Color Yellow Urine Clarity Clear Urine pH 6.0 Ur Specific [place] 1.010 Urine Protein Negative Urine Glucose (UA) Normal Urine Ketones Negative Urine Occult Blood 25 H Urine Nitrite Negative Urine Bilirubin Negative Urine Urobilinogen Normal Ur Leukocyte Esterase Negative Urine RBC 0 SEEN Urine WBC 0 SEEN Ur Squamous Epith Cells 0 SEEN Urine Bacteria 0 SEEN Urine Mucus 0 SEEN Radiography Diagnostic Testing: Clinical Impression(s) from Imaging Studies Abdomen/Pelvis CT 01/17/24 19:11 IMPRESSION: Status post recent section with an enlarged uterus but no postoperative seroma, hematoma, or abscess. Electronically Signed: Slick Newberry MD at 20:20 EDT , Discharge Plan Triage Chief Complaint: Abd Pain ED Midlevel Provider: Thu Montanez ED Provider: Eleazar Corcoran Dx/Rx/DC Orders Clinical Impression: H/O section, Abdominal pain Instructions: Abdominal Pain Prescriptions: No Action albuterol sulfate 90 mcg/actuation HFA aerosol inhaler 2 puff INHALATION Q4H PRN PRN (Reason: dyspnea) docosahexaenoic acid [ DHA] See Rx Instructions PO DAILY Rx Instructions: orally daily; sennosides-docusate sodium [Stool Softener-Stimulant Laxat] 8.6-50 mg Tablet 1 - 2 tab PO DAILY Qty: 0 0RF acetaminophen 500 mg Tablet 1,000 mg PO Q6H Qty: 0 0RF ibuprofen 600 mg Tablet 600 mg PO Q6H Qty: 0 0RF ferrous sulfate 325 mg (65 mg iron) tablet 325 mg PO QODAY Referrals: [facility] Doctor,Out of [Non-Staff] - Activity Restrictions/Additional Instructions: 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 You can alternate Tylenol and ibuprofen for your pain as needed. Disposition Disposition: Home, Self Care
[2024-01-17] MEDS: Ketorolac 15 MG/ML Vial IV (18:39)
[2024-01-17 18:47] VITALS: BMI 25.8
[2024-01-17 18:47] LABS: Bacteria 0 SEEN /hpf (None Seen); Mucous, Urine 0 SEEN /hpf (<or=2+); Red Blood Cells-Urine 0 SEEN /hpf (0-5); Squamous Epithelial Cells - UA 0 SEEN /hpf (5-10); White Blood Cells 0 SEEN /hpf (0-5)
[2024-01-17 18:50] LABS: Absolute Lymphocyte Count 1.47 X10^3/uL (0.83-4.51); Absolute Neutrophil Count 8.6 X10^3/uL (2.0-7.7); Basophil# 0.04 X10^3/uL; Basophil% 0.4 % (0-1); Eosinophils% 2.7 % (0-5); Hematocrit 31.8 % (37-47); Hemoglobin 10.2 g/dL (12.0-15.0); Lymphocyte # 1.47 X10^3/ul (0.83-4.51); Lymphocyte % 13.1 % (19-41); Mean Corp Hgb Conc 32.1 g/dL (32-36); Mean Corpuscular Hgb 28.8 pg (27.0-32.0); Mean Corpuscular Volume 89.8 fL (81-99); Mean Platelet Vol. 8.9 fl (6.2-12.0); Monocyte# 0.62 X10^3/uL; Monocyte% 5.5 % (0-10); NRBC Flagged by Analyzer 0 % (0-5); Neutrophil # 8.57 X10^3/uL (2.7-7.7); Neutrophil % 76.5 % (47-70); Platelet Count 380 K/mm3 (150-450); RBC Distribution Width CV 13.8 % (11.6-14.6); RBC Distribution Width SD 45.2 fl (35.1-43.9); Red Blood Count 3.54 M/mm3 (4.2-5.4); White Blood Count 11.2 K/mm3 (4.4-11.0)
[2024-01-17 18:56] LABS: Color, Urine Yellow (Yellow); Glucose, Dipstick Normal (Normal); Ketone-Dipstick Negative (Negative); Leukocyte Esterase-Dipstick Negative /ul (Negative); Nitrite-Dipstick Negative (Negative); Occult Blood-Urine 25 /ul (Negative); Protein-Dipstick Negative (Negative); Urine Bilirubin Dipstick Negative (Negative); Urine Clarity Clear (Clear); Urine Urobilinogen Normal (Normal)
[2024-01-17 19:08] LABS: AST(SGOT) 29 U/L (15-37); Alanine Aminotransfer ALT/SGPT 34 U/L (13-56); Albumin, Serum 2.8 g/dL (3.2-5.0); Alkaline Phosphatase 177 U/L (45-117); Anion Gap 8 (5-15); BUN 19 mg/dL (7-18); BUN/Creat Ratio 28.9 RATIO (10-20); Bilirubin, Direct 0.08 mg/dL (0.00-0.30); Calcium,Total 9.8 mg/dL (8.5-10.1); Chloride 104 mmol/L (98-107); Creatinine, Serum 0.66 mg/dL (0.55-1.02); EST Glomerular Filtration Rate 117 mL/min (>60); Est Glom Filt Rate - Afr Amer 141 mL/min (>60); Estimated Creatinine Clearance 129.47 ml/min; Globulin 4.5 g/dL (2.2-4.2); Glucose 91 mg/dL (74-106); Potassium 3.8 mmol/L (3.5-5.1); Protein, Total 7.3 g/dL (6.4-8.2); Sodium Level 136 mmol/L (136-145)
--- NOTE | 2024-01-17 19:11 | CT_ITS ---
STUDY: CT ABDOMEN AND PELVIS WITH CONTRAST REASON FOR EXAM: Female, 23 years old. right sided abd pain s/p RADIATION DOSAGE (If Supplied By Facility): CTDIvol = ( 13.79 ) mGy, DLP = ( 545.01 ) mGycm TECHNIQUE: Transaxial images were obtained from the dome of the diaphragm to the symphysis pubis without oral contrast. IV 100mL Isovue-[id number] was administered. Sagittal and coronal images were reconstructed. Individualized dose optimization techniques were used for this CT. COMPARISON: None. FINDINGS: The visualized lung bases are unremarkable. The visualized portions of the heart are within normal limits. Normal liver. The gallbladder is contracted. Normal spleen. Normal pancreas. Normal bilateral adrenal glands. Normal right kidney. Normal left kidney. Normal visualized stomach. Normal small intestine. Normal colon. The appendix is visualized and appears normal. Normal abdominal aorta. Normal inferior vena cava. Normal retroperitoneum. Normal urinary bladder. Enlarged uterus. Some fluid in the vagina. Postoperative changes of the anterior abdominal wall in the pelvis with a couple bubbles of air but no postoperative hematoma, seroma, or abscess. Mild dextroscoliosis lumbar spine. CT/Abdomen/Pelvis W IV Cont ONLY IMPRESSION: Status post recent section with an enlarged uterus but no postoperative seroma, hematoma, or abscess. Electronically Signed: Slick Newberry MD at 20:20 EDT ,
[2024-01-17 19:54] VITALS: BP 134/72; PULSE 91; RESP 16; O2SAT 96
[2024-01-17 21:00] VITALS: BP 154/87; PULSE 90; RESP 16; TEMP 36.8; O2SAT 93
== END 2024-01-17 22:02 | disposition home or self-care (01) ==
PROVIDERS: Physician Assistant; Emergency Provider Emergency Medicine; Visit Provider Emergency Medicine
DX: R10.84 Generalized abdominal pain (principal)
CPT/HCPCS: 74177; 80048; 80076; 81001; 85025; 96374; 99282; Q9967; A4216